=== PATIENT | female | born 1990 | race Caucasian/White ===

== ENCOUNTER 2016-10-10 03:18 | Emergency (ER) | payer OTHER, MEDICAID ==
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
[2016-10-10] MEDS ORDERED: FENTANYL CITRATE INJ/PF 100 MCG/2 ML AMPUL IV ONE (06:36)
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
[2016-10-10] MEDS ORDERED: ACETAMINOPHEN 325 MG TABLET PO ONE (07:04)
[2016-10-10] MEDS ORDERED: DIPH/PERTUSS(ACELL)/TETANUS VAC/PF 0.5 ML SYR (>=10YO) IM ONE (07:04)
[2016-10-10 07:46] LABS: ABSOLUTE BASOPHILS # (AUTO) 0.1 10^3/uL (0.0-0.2); ABSOLUTE EOSINOPHILS # (AUTO) 0.1 10^3/uL (0.0-0.6); ABSOLUTE LYMPHOCYTES (AUTO) 1.6 10^3/uL (0.5-4.7); ABSOLUTE MONOCYTES (AUTO) 0.8 10^3/uL (0.1-1.4); ABSOLUTE NEUT (AUTO) 14.2 10^3/uL (1.7-8.2); BASOPHILS % (AUTO) 0.3 % (0-2); EOSINOPHILS % (AUTO) 0.3 % (0-6); HEMATOCRIT 36.9 % (36.0-47.0); HEMOGLOBIN 12.9 g/dL (12.0-15.5); HGB HCT DIFFERENCE 1.8; LYMPHOCYTES % (AUTO) 9.6 % (13-45); MEAN CORPUSCULAR HEMOGLOBIN 31.4 pg (27.0-33.4); MEAN CORPUSCULAR HGB CONC 35.1 g/dL (32.0-36.0); MEAN CORPUSCULAR VOLUME 89 fl (80-97); MONOCYTES % (AUTO) 4.8 % (3-13); RED BLOOD COUNT 4.13 10^6/uL (3.72-5.28); RED CELL DISTRIBUTION WIDTH 13.5 % (11.5-14.0); WHITE BLOOD COUNT 16.7 10^3/uL (4.0-10.5)
[2016-10-10 08:52] VITALS: BP 121/70
[2016-10-10 09:05] LABS: ALANINE AMINOTRANSFERASE 88 U/L (9-52); ALBUMIN 4.6 g/dL (3.5-5.0); ALKALINE PHOSPHATASE 91 U/L (38-126); ANION GAP 15 (5-19); ASPARTATE AMINO TRANSFERASE 75 U/L (14-36); BLOOD UREA NITROGEN 15 mg/dL (7-20); CALCIUM 10.1 mg/dL (8.4-10.2); CARBON DIOXIDE 25 mmol/L (22-30); CHLORIDE 104 mmol/L (98-107); CREATININE RESULT 0.76 mg/dL (0.52-1.25); GLUCOSE 96 mg/dL (75-110); POTASSIUM 4.1 mmol/L (3.6-5.0); SODIUM 143.5 mmol/L (137-145); TOTAL PROTEIN 8.2 g/dL (6.3-8.2)
[2016-10-10] MEDS ORDERED: LORAZEPAM INJ 2 MG/1 ML VIAL IV ONE (10:15)
[2016-10-10] MEDS ORDERED: NICOTINE 7 MG/24 HR PATCH.TD24 TD ONE (10:26)
== END 2016-10-10 10:51 | disposition short-term general hospital (02) ==
LOC: ER 03:18
DX: S12.591A Other nondisplaced fracture of sixth cervical vertebra, initial encounter for closed fracture (principal); S01.21XA Laceration without foreign body of nose, initial encounter; S80.01XA Contusion of right knee, initial encounter; V47.5XXA Car driver injured in collision with fixed or stationary object in traffic accident, initial encounter; M54.2 Cervicalgia; M25.561 Pain in right knee; M54.6 Pain in thoracic spine; M54.5 Low back pain; I10 Essential (primary) hypertension; F17.200 Nicotine dependence, unspecified, uncomplicated
CPT/HCPCS: 99285; 90471; 96374; 36415; 85025; 80053; 71020; 72170; 73560; 70450; 70486; 72125; 90715; L0120; J2060; J3490

== ENCOUNTER → 2017-04-06 | Outpatient (CLI) | payer MEDICAID ==
--- NOTE | 2017-04-06 15:32 | RADIOLOGY REPORT (SQ) ---
EXAM DESCRIPTION: CERV SP 4 OR 5 VIEWS COMPLETED DATE/TIME: 04/06/2017 3:19 pm REASON FOR STUDY: UNSP DISP FX OF SIXTH CERVICAL VERTEBRA, INIT FOR CLOS FX S12.500A UNSP DISP FX O F SIXTH CERVICAL VERTEBRA, INIT FOR C COMPARISON: CT dated 10/10/2016. NUMBER OF VIEWS: Five views. TECHNIQUE: AP, lateral, obliques and odontoid radiographic images acquired of the cervical spine. LIMITATIONS: None. FINDINGS: MINERALIZATION: Normal. ALIGNMENT: Anatomic. VERTEBRAE: Vertebral bodies of normal height. DISCS: No significant osteophytes or sclerosis. Disc height maintained. FORAMINA: No osteophytes or foraminal narrowing. LATERAL AND POSTERIOR ELEMENTS: Facets, lateral masses and spinous processes without significant find ings. HARDWARE: None in the spine. SOFT TISSUES: No masses or calcifications. Lung apices clear. OTHER: No other significant finding. IMPRESSION: NO SIGNIFICANT RADIOGRAPHIC FINDING IN THE CERVICAL SPINE. THE FRACTURE IDENTIFIED ON P REVIOUS CT IS NOT VISIBLE ON PLAIN X-RAY. TECHNICAL DOCUMENTATION: JOB ID: [id number] [employer]- All Rights Reserved
== END ==
LOC: RAD 14:54
PROVIDERS: ATTEND Family Medicine
DX: S12.500A Unspecified displaced fracture of sixth cervical vertebra, initial encounter for closed fracture (principal); X58.XXXA Exposure to other specified factors, initial encounter
CPT/HCPCS: 72050

== ENCOUNTER 2017-04-29 06:58 | Emergency (ER) | payer MEDICAID ==
--- NOTE | 2017-04-29 08:20 | ER Document Report ---
ED Extremity Problem, Lower - General Chief Complaint: Leg Pain Stated Complaint: LOWER EXTREMITY PAIN Time Seen by Provider: 04/29/17 08:17 Mode of Arrival: Ambulatory Information source: Patient Notes: Patient is a 27-year-old female who presents to the ER today for swelling to bilateral feet yesterday that has never happened before. She admits to pain with the swelling, states that it's gotten better with her elevating her feet on pillows last night. She also complains of bilateral lower back pain radiating down her legs occasionally. Her pain management doctor has her on gabapentin for this, she says it doesn't help. She denies loss of bladder or bowel function. TRAVEL OUTSIDE OF THE [place] IN LAST 30 DAYS: No - Related Data Allergies/Adverse Reactions: No Known Allergies Allergy (Verified 07/05/16 07:16) Past Medical History - General Information source: Patient - Social History Smoking Status: Unknown if Ever Smoked Family History: Arthritis, DM, Hyperlipidemia, Hypertension, Malignancy - skin, Other - Mother: blood clots in legs Patient has suicidal ideation: No Patient has homicidal ideation: No - Past Medical History Cardiac Medical History: Reports: Hx Hypertension Pulmonary Medical History: Reports: Hx Bronchitis - twice in last 2 yrs Neurological Medical History: Reports: Hx Migraine Renal/ Medical History: Reports: Hx Ovarian Cysts. Denies: Hx Peritoneal Dialysis GI Medical History: Reports: Hx Irritable Bowel - constipation Musculoskeltal Medical History: Denies Hx Arthritis, Reports Hx Musculoskeletal Trauma Psychiatric Medical History: Reports: Hx Anxiety, Hx Attention Deficit Hyperactivity Disorder, Hx Depression Traumatic Medical History: Reports: Hx Fractures Past Surgical History: Reports: Hx Abdominal Surgery - LAPROSCOPY FOR ENDOMETROSIS, Hx Adenoidectomy, Hx Breast Surgery - augmentation, Hx Gynecologic Surgery - LAPROSCOPY FOR ENDOMETROSIS, Hx Orthopedic Surgery - pack 's cyst, Hx Tonsillectomy. Denies: Hx Pacemaker - Immunizations Immunizations up to date: Yes Hx Diphtheria, Pertussis, Tetanus Vaccination: Yes Review of Systems - Review of Systems Constitutional: No symptoms reported EENT: No symptoms reported Cardiovascular: No symptoms reported Respiratory: No symptoms reported Gastrointestinal: No symptoms reported Genitourinary: No symptoms reported Female Genitourinary: No symptoms reported Musculoskeletal: See HPI Skin: See HPI Hematologic/Lymphatic: No symptoms reported Neurological/Psychological: No symptoms reported Physical Exam - Vital signs Vitals: Temp Pulse Resp BP Pulse Ox 97.5 F 78 16 120/73 98 04/29/17 07:14 04/29/17 07:14 04/29/17 07:14 04/29/17 07:14 04/29/17 07:14 - Notes Notes: PHYSICAL EXAMINATION: GENERAL: Well-appearing and in no acute distress. HEAD: Atraumatic, normocephalic. EYES: Pupils equal round and reactive to light, extraocular movements intact, sclera anicteric, conjunctiva are normal. NECK: Normal range of motion, supple without lymphadenopathy LUNGS: CTAB and equal. No wheezes rales or rhonchi. HEART: Regular rate and rhythm without murmurs ABDOMEN: Soft, no tenderness. No guarding, no rebound BACK: Bilateral SI joint tenderness, no vertebral tenderness, normal ROM but with pain to hips on flexion and extension GI/: no CVA tenderness EXTREMITIES: Normal range of motion, no pitting edema. No cyanosis. NEUROLOGICAL: Cranial nerves grossly intact. Normal sensory/motor exams. PSYCH: Normal mood, normal affect. SKIN: Warm, Dry, normal turgor, no rashes or lesions noted Course - Re-evaluation Re-evalutation: 04/29/17 13:45 Lab work is unremarkable today including a normal BNP and kidney function, patient does not actually have any pitting edema here at the emergency department, I will treat her for sciatica with muscle relaxer and anti- inflammatory medication. - Vital Signs Vital signs: Temp Pulse Resp BP Pulse Ox 97.6 F 73 16 106/66 99 04/29/17 09:44 04/29/17 09:44 04/29/17 07:14 04/29/17 09:44 04/29/17 09:44 - Laboratory Result Diagrams: 04/29/17 08:32 04/29/17 08:32 Laboratory results interpreted by me: 04/29/17 04/29/17 04/29/17 08:32 08:32 08:32 RBC 3.71 L Hct 35.5 L MCH 33.7 H AST 50 H ALT 76 H NT-Pro-B Natriuret Pep 133 H Total Protein 6.2 L Discharge - Discharge Clinical Impression: Bilateral swelling of feet Sciatica Qualifiers: Laterality: bilateral Qualified Code(s): M54.31 - Sciatica, right side Condition: Stable Disposition: HOME, SELF-CARE Instructions: Sciatica ([facility]) Additional Instructions: Return immediately for any new or worsening symptoms. Follow up with primary care provider, call tomorrow to make followup appointment. Prescriptions: Cyclobenzaprine HCl [Flexeril 10 mg Tablet] 10 mg PO TIDP PRN #15 tab PRN Reason: Ibuprofen [Motrin 800 mg Tablet] 800 mg PO Q8H PRN #30 tab PRN Reason: Prednisone 40 mg PO DAILY #12 tablet
[2017-04-29] MEDS ORDERED: IBUPROFEN 800 MG TABLET PO ONE (08:28)
[2017-04-29] MEDS ORDERED: CYCLOBENZAPRINE HCL 10 MG TABLET PO ONE (08:28)
[2017-04-29] MEDS ORDERED: PREDNISONE 20 MG TABLET PO ONE (08:28)
[2017-04-29 08:43] LABS: ABSOLUTE EOSINOPHILS # (AUTO) 0.2 10^3/uL (0.0-0.6); ABSOLUTE LYMPHOCYTES (AUTO) 2.3 10^3/uL (0.5-4.7); ABSOLUTE MONOCYTES (AUTO) 0.5 10^3/uL (0.1-1.4); ABSOLUTE NEUT (AUTO) 3.6 10^3/uL (1.7-8.2); BASOPHILS % (AUTO) 0.4 % (0-2); EOSINOPHILS % (AUTO) 3.7 % (0-6); HEMATOCRIT 35.5 % (36.0-47.0); HEMOGLOBIN 12.5 g/dL (12.0-15.5); LYMPHOCYTES % (AUTO) 34.6 % (13-45); MEAN CORPUSCULAR HEMOGLOBIN 33.7 pg (27.0-33.4); MEAN CORPUSCULAR HGB CONC 35.1 g/dL (32.0-36.0); MEAN CORPUSCULAR VOLUME 96 fl (80-97); RED BLOOD COUNT 3.71 10^6/uL (3.72-5.28); RED CELL DISTRIBUTION WIDTH 13.2 % (11.5-14.0); SEGMENTED NEUTROPHILS % (AUTO) 54.3 % (42-78); WHITE BLOOD COUNT 6.6 10^3/uL (4.0-10.5)
[2017-04-29 09:10] LABS: AMORPHOUS SEDIMENT,URINE TRACE /HPF; APPEARANCE,URINE CLOUDY; BILIRUBIN,URINE NEGATIVE (NEGATIVE); GLUCOSE, URINE NEGATIVE (NEGATIVE); KETONES,URINE NEGATIVE (NEGATIVE); LEUKOCYTE ESTERASE,URINE NEGATIVE (NEGATIVE); NITRITE,URINE NEGATIVE (NEGATIVE); PROTEIN,URINE NEGATIVE (NEGATIVE); URINE SPECIFIC GRAVITY 1.012; UROBILINOGEN,URINE NEGATIVE mg/dL (<2.0)
[2017-04-29 09:17] LABS: ALANINE AMINOTRANSFERASE 76 U/L (9-52); ALBUMIN 3.6 g/dL (3.5-5.0); ALKALINE PHOSPHATASE 49 U/L (38-126); ANION GAP 8 (5-19); ASPARTATE AMINO TRANSFERASE 50 U/L (14-36); BILIRUBIN,DIRECT 0.3 mg/dL (0.0-0.4); BILIRUBIN,TOTAL 0.3 mg/dL (0.2-1.3); BLOOD UREA NITROGEN 11 mg/dL (7-20); CALCIUM 9.5 mg/dL (8.4-10.2); CARBON DIOXIDE 29 mmol/L (22-30); CHLORIDE 102 mmol/L (98-107); CREATININE RESULT 0.65 mg/dL (0.52-1.25); GLUCOSE 103 mg/dL (75-110); POTASSIUM 3.9 mmol/L (3.6-5.0); SODIUM 138.9 mmol/L (137-145); TOTAL PROTEIN 6.2 g/dL (6.3-8.2)
[2017-04-29 09:58] VITALS: BP 106/66
== END 2017-04-29 09:58 | disposition home or self-care (01) ==
LOC: ER 06:58
DX: M54.31 Sciatica, right side (principal); M79.89 Other specified soft tissue disorders; M54.5 Low back pain; M79.672 Pain in left foot; M79.671 Pain in right foot
CPT/HCPCS: 99283; 36415; 84703; 85025; 80053; 81001; 83880; J3490 ×2; J7512

== ENCOUNTER → 2017-09-08 | Outpatient (CLI) | payer MEDICAID ==
--- NOTE | 2017-09-08 15:47 | RADIOLOGY REPORT (SQ) ---
EXAM DESCRIPTION: HAND LEFT 2 VIEWS COMPLETED DATE/TIME: 09/08/2017 2:53 pm REASON FOR STUDY: INJURY OF LEFT HAND (S69.92XA) S69.92XA UNSP INJURY OF LEFT WRIST, HAND AND FINGE R(S), INIT COMPARISON: None. EXAM PARAMETERS: NUMBER OF VIEWS: Three views. TECHNIQUE: AP, lateral and oblique radiographic images acquired of the left hand. LIMITATIONS: None. FINDINGS: MINERALIZATION: Normal. BONES: No acute fracture or dislocation. No worrisome bone lesions. JOINTS: No effusions. SOFT TISSUES: No soft tissue swelling. No foreign body. OTHER: No other significant finding. IMPRESSION: NEGATIVE STUDY OF THE LEFT HAND. NO RADIOGRAPHIC EVIDENCE OF ACUTE INJURY. TECHNICAL DOCUMENTATION: JOB ID: [id number] [employer]- All Rights Reserved
== END ==
LOC: RAD 14:10
DX: S69.92XA Unspecified injury of left wrist, hand and finger(s), initial encounter (principal); X58.XXXA Exposure to other specified factors, initial encounter; Y93.9 Activity, unspecified; Y92.9 Unspecified place or not applicable; Y99.9 Unspecified external cause status

== ENCOUNTER → 2017-09-16 | Outpatient (CLI) | payer MEDICAID ==
--- NOTE | 2017-09-16 17:23 | RADIOLOGY REPORT (SQ) ---
EXAM DESCRIPTION: L SPINE 2 VIEWS COMPLETED DATE/TIME: 09/16/2017 5:01 pm REASON FOR STUDY: M54.5 LOW BACK PAIN M54.5 LOW BACK PAIN COMPARISON: None. NUMBER OF VIEWS: Two views. TECHNIQUE: AP and lateral radiographic images acquired of the lumbar spine. LIMITATIONS: None. FINDINGS: MINERALIZATION: Normal. SEGMENTATION: Normal. No transitional anatomy. ALIGNMENT: Normal. VERTEBRAE: Maintained height. No fracture or worrisome bone lesion. DISCS: Preserved height. No significant osteophytes or end plate irregularity. POSTERIOR ELEMENTS: Pedicles and facets are intact. No pars defect or posterior arch defects. HARDWARE: None in the spine. PARASPINAL SOFT TISSUES: Normal. PELVIS: Intact as visualized. No fractures or worrisome bone lesions. SI joints intact. OTHER: No other significant finding. IMPRESSION: NORMAL 2 VIEW LUMBAR SPINE. TECHNICAL DOCUMENTATION: JOB ID: [id number] [employer]- All Rights Reserved
== END ==
LOC: RAD 16:24
PROVIDERS: ATTEND Physician Assistant
DX: M54.5 Low back pain (principal)
CPT/HCPCS: 72100

== ENCOUNTER 2017-11-10 16:33 | Emergency (ER) | payer MEDICAID ==
[2017-11-10] MEDS ORDERED: IBUPROFEN 600 MG TABLET PO ONE (17:13)
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
--- NOTE | 2017-11-10 17:52 | RADIOLOGY REPORT (SQ) ---
EXAM DESCRIPTION: WRIST LEFT 3 VIEWS; HAND LEFT 3 VIEWS COMPLETED DATE/TIME: 11/10/2017 5:37 pm REASON FOR STUDY: pain injury wednesday COMPARISON: 09/08/2017 NUMBER OF VIEWS: Six views. TECHNIQUE: AP, lateral, and oblique radiographic images acquired of the left wrist with AP, lateral oblique views left hand. LIMITATIONS: None. FINDINGS: MINERALIZATION: Normal. BONES: No acute fracture or dislocation. No worrisome bone lesions. Normal alignment. SOFT TISSUES: No soft tissue swelling. No foreign body. OTHER: No other significant finding. IMPRESSION: No significant abnormalities involving the left hand or wrist. TECHNICAL DOCUMENTATION: JOB ID: [id number] [employer]- All Rights Reserved Reading location - IP/workstation name: [email or web address]
--- NOTE | 2017-11-10 17:52 | RADIOLOGY REPORT (SQ) ---
EXAM DESCRIPTION: WRIST LEFT 3 VIEWS; HAND LEFT 3 VIEWS COMPLETED DATE/TIME: 11/10/2017 5:37 pm REASON FOR STUDY: pain injury wednesday COMPARISON: 09/08/2017 NUMBER OF VIEWS: Six views. TECHNIQUE: AP, lateral, and oblique radiographic images acquired of the left wrist with AP, lateral oblique views left hand. LIMITATIONS: None. FINDINGS: MINERALIZATION: Normal. BONES: No acute fracture or dislocation. No worrisome bone lesions. Normal alignment. SOFT TISSUES: No soft tissue swelling. No foreign body. OTHER: No other significant finding. IMPRESSION: No significant abnormalities involving the left hand or wrist. TECHNICAL DOCUMENTATION: JOB ID: [id number] [employer]- All Rights Reserved Reading location - IP/workstation name: [email or web address]
[2017-11-10 19:48] VITALS: BP 124/75
== END 2017-11-10 19:35 | disposition home or self-care (01) ==
LOC: ER 16:33
DX: M79.642 Pain in left hand (principal); M25.532 Pain in left wrist; Y04.2XXA Assault by strike against or bumped into by another person, initial encounter; Y92.009 Unspecified place in unspecified non-institutional (private) residence as the place of occurrence of the external cause
CPT/HCPCS: 99406; 99283; 73130; 73110; J3490

== ENCOUNTER 2017-11-14 03:42 | Emergency (ER) | payer MEDICAID ==
--- NOTE | 2017-11-14 04:11 | ER Document Report ---
ED General - General Chief Complaint: Psych Problem Stated Complaint: PSYCH PROBLEM Time Seen by Provider: 11/14/17 03:52 Mode of Arrival: Medic Information source: Patient, Emergency Med Personnel Notes: 27-year-old female presents under IVC hold due to pipe bipolar disorder not taking her medications as prescribed, it is noted the patient has been refusing to leave her room has been making suicidal statements and has had poor hygiene. Patient notes she was homeless last week is now with her parents. Patient herself denies any complaints TRAVEL OUTSIDE OF THE [place] IN LAST 30 DAYS: No COUNTRY TRAVELED TO/FROM: [facility] Onset: Just prior to arrival Onset/Duration: Sudden Quality of pain: No pain Severity: Mild Pain Level: Denies Associated symptoms: Other Exacerbated by: Denies Relieved by: Denies Similar symptoms previously: Yes Recently seen / treated by doctor: Yes - Related Data Allergies/Adverse Reactions: No Known Allergies Allergy (Verified 11/10/17 16:34) Past Medical History - Social History Smoking Status: Never Smoker Cigarette use (# per day): No Chew tobacco use (# tins/day): No Smoking Education Provided: No Family History: Arthritis, CAD, COPD, CVA, DM, Hyperlipidemia, Hypertension, Malignancy - skin, Other - Mother: blood clots in legs. denies: Thyroid Disfunction - Past Medical History Cardiac Medical History: Reports: Hx Hypertension Pulmonary Medical History: Reports: Hx Bronchitis - twice in last 2 yrs Neurological Medical History: Reports: Hx Migraine Renal/ Medical History: Reports: Hx Ovarian Cysts. Denies: Hx Peritoneal Dialysis GI Medical History: Reports: Hx Irritable Bowel - constipation Musculoskeltal Medical History: Denies Hx Arthritis, Reports Hx Musculoskeletal Deformity, Reports Hx Musculoskeletal Trauma Psychiatric Medical History: Reports: Hx Anxiety, Hx Attention Deficit Hyperactivity Disorder, Hx Bipolar Disorder, Hx Depression Traumatic Medical History: Reports: Hx Fractures - right hand Past Surgical History: Reports: Hx Abdominal Surgery - LAPROSCOPY FOR ENDOMETROSIS, Hx Adenoidectomy, Hx Breast Surgery - augmentation, Hx Gynecologic Surgery - LAPROSCOPY FOR ENDOMETROSIS, Hx Orthopedic Surgery - pack 's cyst, Hx Tonsillectomy. Denies: Hx Pacemaker - Immunizations Immunizations up to date: Yes Hx Diphtheria, Pertussis, Tetanus Vaccination: Yes Review of Systems - Review of Systems Notes: REVIEW OF SYSTEMS: CONSTITUTIONAL : Denies fever, chills, or sweats. Denies recent illness. EENT: Denies eye, ear, throat, or mouth pain or symptoms. Denies nasal or sinus congestion or discharge. Denies throat, tongue, or mouth swelling or difficulty swallowing. CARDIOVASCULAR: Denies chest pain. Denies palpitations or racing or irregular heart beat. Denies ankle edema. RESPIRATORY: Denies cough, cold, or chest congestion. Denies shortness of breath, difficulty breathing, or wheezing. GASTROINTESTINAL: Denies abdominal pain or distention. Denies nausea, vomiting , or diarrhea. Denies blood in vomitus, stools, or per rectum. Denies black, tarry stools. Denies constipation. GENITOURINARY: Denies difficulty urinating, painful urination, burning, frequency, blood in urine, or discharge. FEMALE GENITOURINARY: Denies vaginal bleeding, heavy or abnormal periods, irregular periods. Denies vaginal discharge or odor. MUSCULOSKELETAL: Denies back or neck pain or stiffness. Denies joint pain or swelling. SKIN: Denies rash, lesions or sores. HEMATOLOGIC : Denies easy bruising or bleeding. LYMPHATIC: Denies swollen, enlarged glands. NEUROLOGICAL: Denies confusion or altered mental status. Denies passing out or loss of consciousness. Denies dizziness or lightheadedness. Denies headache. Denies weakness or paralysis or loss of use of either side. Denies problems with gait or speech. Denies sensory loss, numbness, or tingling. Denies seizures. PSYCHIATRIC: Denies anxiety or stress. Denies depression, suicidal ideation, or homicidal ideation. However IVC paperwork notes otherwise ALL OTHER SYSTEMS REVIEWED AND NEGATIVE. PHYSICAL EXAMINATION: GENERAL: Well-appearing, well-nourished and in no acute distress. HEAD: Atraumatic, normocephalic. EYES: Pupils equal round and reactive to light, extraocular movements intact, conjunctiva are normal. ENT: Nares patent, oropharynx clear without exudates. Moist mucous membranes. NECK: Normal range of motion, supple without lymphadenopathy LUNGS: Breath sounds clear to auscultation bilaterally and equal. No wheezes rales or rhonchi. HEART: Regular rate and rhythm without murmurs ABDOMEN: Soft, nontender, nondistended abdomen. No guarding, no rebound. No masses appreciated. Female : deferred Musculoskeletal: Brace noted left forearm NEUROLOGICAL: Cranial nerves grossly intact. Normal speech, normal gait. Normal sensory, motor exams PSYCH: Normal mood, normal affect. SKIN: Ecchymosis of the left eyelid Dictation was performed using [employer] voice recognition software Course - Re-evaluation Re-evalutation: 11/14/17 04:10 Patient will be held involuntarily, lab work pending otherwise she is resting comfortably is stable mental health will evaluate her Discharge - Discharge Clinical Impression: Noncompliance with medication regimen Bipolar disorder Qualifiers: Active/Remission status: currently active Current bipolar episode type: depressed Current episode severity: mild Qualified Code(s): F31.31 - Bipolar disorder, current episode depressed, mild Condition: Stable Disposition: PSYCH HOSP/UNIT
[2017-11-14 04:38] LABS: ABSOLUTE EOSINOPHILS # (AUTO) 0.1 10^3/uL (0.0-0.6); ABSOLUTE LYMPHOCYTES (AUTO) 2.1 10^3/uL (0.5-4.7); ABSOLUTE MONOCYTES (AUTO) 0.6 10^3/uL (0.1-1.4); ABSOLUTE NEUT (AUTO) 5.5 10^3/uL (1.7-8.2); BASOPHILS % (AUTO) 0.4 % (0-2); HEMATOCRIT 38.6 % (36.0-47.0); HEMOGLOBIN 13.4 g/dL (12.0-15.5); LYMPHOCYTES % (AUTO) 25.4 % (13-45); MEAN CORPUSCULAR HEMOGLOBIN 32.7 pg (27.0-33.4); MEAN CORPUSCULAR HGB CONC 34.7 g/dL (32.0-36.0); MEAN CORPUSCULAR VOLUME 94 fl (80-97); MONOCYTES % (AUTO) 7.5 % (3-13); PLATELET COUNT 314 10^3/uL (150-450); RED BLOOD COUNT 4.09 10^6/uL (3.72-5.28); RED CELL DISTRIBUTION WIDTH 13.3 % (11.5-14.0); SEGMENTED NEUTROPHILS % (AUTO) 65.7 % (42-78); TOTAL CELLS COUNTED % (AUTO) 100 %; WHITE BLOOD COUNT 8.3 10^3/uL (4.0-10.5)
[2017-11-14 05:03] LABS: BILIRUBIN,URINE NEGATIVE (NEGATIVE); GLUCOSE, URINE NEGATIVE (NEGATIVE); KETONES,URINE TRACE mg/dL (NEGATIVE); LEUKOCYTE ESTERASE,URINE NEGATIVE (NEGATIVE); NITRITE,URINE NEGATIVE (NEGATIVE); PROTEIN,URINE NEGATIVE (NEGATIVE)
[2017-11-14 05:04] LABS: APPEARANCE,URINE SLIGHTLY HAZY; COLOR,URINE YELLOW
[2017-11-14 05:10] LABS: ALANINE AMINOTRANSFERASE 68 U/L (9-52); ALBUMIN 4.1 g/dL (3.5-5.0); ALKALINE PHOSPHATASE 51 U/L (38-126); ANION GAP 8 (5-19); ASPARTATE AMINO TRANSFERASE 29 U/L (14-36); BILIRUBIN,DIRECT 0.2 mg/dL (0.0-0.4); BILIRUBIN,TOTAL 0.2 mg/dL (0.2-1.3); BLOOD UREA NITROGEN 13 mg/dL (7-20); CALCIUM 9.6 mg/dL (8.4-10.2); CARBON DIOXIDE 27 mmol/L (22-30); CHLORIDE 109 mmol/L (98-107); GLUCOSE 88 mg/dL (75-110); POTASSIUM 4.2 mmol/L (3.6-5.0); TOTAL PROTEIN 7.1 g/dL (6.3-8.2)
[2017-11-14 05:20] LABS: ACETAMINOPHEN < 10 ug/mL (10-30); ALCOHOL < 10 mg/dL (NONE DETECTED); SALICYLATE < 1.0 mg/dL (2.0-20.0)
[2017-11-14 05:21] LABS: URINE BARBITURATES SCREEN NEGATIVE; URINE BENZODIAZEPINES SCREEN UNCONFIRMED POSITIVE; URINE COCAINE SCREEN NEGATIVE; URINE MARIJUANA (THC) SCREEN UNCONFIRMED POSITIVE; URINE METHADONE SCREEN NEGATIVE; URINE PHENCYCLIDINE SCREEN NEGATIVE
--- NOTE | 2017-11-14 10:51 | EKG REPORT ---
SEVERITY:- OTHERWISE NORMAL ECG - SINUS RHYTHM BORDERLINE RIGHT AXIS DEVIATION : Confirmed by: Juancarlos Miller 14-Nov-2017 10:51:17
--- NOTE | 2017-11-14 13:22 | PSYCHOLOGICAL NOTE ---
Psych Note - Psych Note Psych Note: Reason for consult: Patient under IVC, complaint by parents of patient not taking care of basic needs. Contact permissions: None given Patient is a 27-year-old female. Patient reports she was not aware that her parents were going to have her sent to a hospital. Patient reports her parents were upset with her because she left the home to go to a friend's house. Patient reports she has a 5-year-old son that her parents primarily take care of , and when she leaves the home the parents are upset because she does not take her son with her occasionally. Patient reports that she was trying to move but is financially dependent on her parents. Patient reports she put in applications for jobs and intends on getting a job so she could provide for her and her son. Patient reports she takes medications to manage her anxiety, depression, and bipolar disorder. Patient reports her parents manage her medications and does not allow her to hold them due to assuming she abuses her medications. Patient reports she takes care of her health and just leaves the home because she feels like her parents are too controlling. Patient reports that she needed a break because she was taking care of her father who had surgery recently. Patient reports she spends most of her time now with friends and it upsets her parents because she is not the primary md do resident urgent care of her 5 year old son. Patient reports she does not use drugs ( weed) around her son. Medication recommendations made by [facility] psychiatric provider Dr. Marilyn MD includes: Discontinue Adderall Begin BuSpar 10 mg twice daily Diagnosis: Per history 296.4 ( F31.74) Bipolar disorder in full remission V 62.9 (Z 60.9) unspecified problem related to social environment Impression/plan: Recommendation to rescind involuntary commitment due to patient not meeting criteria and [place] GS 122C.patient is psychiatrically clear for discharge. Based on patient's evaluation it was determined that the visit was related to family discord. Recommendation for patient to follow-up with primary care provider. Consulted with Dr. Pink regarding the management and care of patient.
--- NOTE | 2017-11-14 15:56 | ER Document Report ---
Doctor's Note Notes: 11/14/17 15:54 Rounds: Chart reviewed earlier and spoke with patient. Initial labs unremarkable except for positive for marijuana. Vital signs were all normal. Patient does not seem to be suicidal at this time. Patient appears to be medically stable for transfer or discharge. Boogie Briceno MD
[2017-11-14 16:23] VITALS: BP 111/54
== END 2017-11-14 16:08 | disposition home or self-care (01) ==
LOC: ER 03:42
DX: F31.31 Bipolar disorder, current episode depressed, mild (principal); Z91.14 Patient's other noncompliance with medication regimen
CPT/HCPCS: 36415; 80053; 80307; 81001; 81025; 85025; 93005; 93010; 99285

== ENCOUNTER 2018-07-05 13:52 | Emergency (ER) | payer MEDICAID, OTHER ==
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
[2018-07-05 15:21] LABS: ABSOLUTE EOSINOPHILS # (AUTO) 0.2 10^3/uL (0.0-0.6); ABSOLUTE LYMPHOCYTES (AUTO) 0.7 10^3/uL (0.5-4.7); ABSOLUTE MONOCYTES (AUTO) 0.4 10^3/uL (0.1-1.4); ABSOLUTE NEUT (AUTO) 13.4 10^3/uL (1.7-8.2); BASOPHILS % (AUTO) 0.2 % (0-2); EOSINOPHILS % (AUTO) 1.3 % (0-6); HEMATOCRIT 38.3 % (36.0-47.0); HEMOGLOBIN 13.2 g/dL (12.0-15.5); LYMPHOCYTES % (AUTO) 5.1 % (13-45); MEAN CORPUSCULAR HEMOGLOBIN 32.8 pg (27.0-33.4); MEAN CORPUSCULAR HGB CONC 34.6 g/dL (32.0-36.0); MEAN CORPUSCULAR VOLUME 95 fl (80-97); MONOCYTES % (AUTO) 2.5 % (3-13); PLATELET COUNT 180 10^3/uL (150-450); RED BLOOD COUNT 4.03 10^6/uL (3.72-5.28); RED CELL DISTRIBUTION WIDTH 13.9 % (11.5-14.0); SEGMENTED NEUTROPHILS % (AUTO) 90.9 % (42-78); TOTAL CELLS COUNTED % (AUTO) 100 %; WHITE BLOOD COUNT 14.8 10^3/uL (4.0-10.5)
[2018-07-05 15:28] LABS: ALANINE AMINOTRANSFERASE 17 U/L (9-52); ALBUMIN 4.4 g/dL (3.5-5.0); ALKALINE PHOSPHATASE 54 U/L (38-126); ANION GAP 14 (5-19); ASPARTATE AMINO TRANSFERASE 35 U/L (14-36); BILIRUBIN,DIRECT 0.3 mg/dL (0.0-0.4); BILIRUBIN,TOTAL 0.8 mg/dL (0.2-1.3); BLOOD UREA NITROGEN 11 mg/dL (7-20); CARBON DIOXIDE 25 mmol/L (22-30); CHLORIDE 103 mmol/L (98-107); GLUCOSE 184 mg/dL (75-110); POTASSIUM 3.7 mmol/L (3.6-5.0); SODIUM 142.4 mmol/L (137-145); TOTAL PROTEIN 7.4 g/dL (6.3-8.2)
[2018-07-05] MEDS ORDERED: NORMAL SALINE 1000 ML 1,000 ML IV ONE (15:28)
[2018-07-05 15:30] LABS: ACETAMINOPHEN < 10 ug/mL (10-30); SALICYLATE < 1.0 mg/dL (2.0-20.0)
[2018-07-05 17:29] LABS: APPEARANCE,URINE CLOUDY; BILIRUBIN,URINE NEGATIVE (NEGATIVE); COLOR,URINE YELLOW; GLUCOSE, URINE 50 mg/dL (NEGATIVE); KETONES,URINE NEGATIVE (NEGATIVE); LEUKOCYTE ESTERASE,URINE NEGATIVE (NEGATIVE); NITRITE,URINE NEGATIVE (NEGATIVE); PROTEIN,URINE 30 mg/dL (NEGATIVE); URINE SPECIFIC GRAVITY 1.013; UROBILINOGEN,URINE NEGATIVE mg/dL (<2.0)
[2018-07-05 17:40] LABS: URINE AMPHETAMINES SCREEN UNCONFIRMED POSITIVE; URINE BARBITURATES SCREEN NEGATIVE; URINE BENZODIAZEPINES SCREEN UNCONFIRMED POSITIVE; URINE COCAINE SCREEN UNCONFIRMED POSITIVE; URINE MARIJUANA (THC) SCREEN NEGATIVE; URINE METHADONE SCREEN NEGATIVE; URINE PHENCYCLIDINE SCREEN NEGATIVE
[2018-07-05 19:58] VITALS: BP 134/91
--- NOTE | 2018-07-06 19:22 | EKG REPORT ---
SEVERITY:- OTHERWISE NORMAL ECG - SINUS RHYTHM BORDERLINE RIGHT AXIS DEVIATION : Confirmed by: Jenni Hernandez MD 06-Jul-2018 19:21:33
== END 2018-07-05 20:29 | disposition home or self-care (01) ==
LOC: ER 13:52
DX: T40.1X1A Poisoning by heroin, accidental (unintentional), initial encounter (principal); Y92.512 Supermarket, store or market as the place of occurrence of the external cause; I10 Essential (primary) hypertension
CPT/HCPCS: 93005; 99284; 96360; 96361; 36415; 83735; 80307 ×3; 85025; 81025; 80053; 81001; 93010; J7030

== ENCOUNTER 2018-08-29 23:54 | Emergency (ER) | payer MEDICAID ==
[2018-08-30] MEDS ORDERED: IBUPROFEN 600 MG TABLET PO ONE (01:33)
[2018-08-30] MEDS ORDERED: PSEUDOEPHEDRINE HCL 30 MG TABLET PO ONE (01:33)
[2018-08-30] MEDS ORDERED: BENZONATATE 100 MG CAPSULE PO ONE (01:34)
--- NOTE | 2018-08-30 01:50 | ER Document Report ---
HPI - HPI Patient complains to provider of: Cough and congestion Time Seen by Provider: 08/30/18 01:01 Pain Level: 3 Context: Patient is a 28-year-old female presenting to the emergency department complaining of generalized cough and congestion since Wednesday. Patient is denying any fever, nausea, vomiting, diarrhea, shortness of breath or chest pain. Patient states when she does take [id number] Sudafed it does help her nasal congestion but once the Sudafed wears off the congestion comes back. Tonight patient is complaining of bilateral ear pain and sore throat. Past medical history: None Medications: None Allergies: None - CONSTITUTIONAL Constitutional: REPORTS: Chills - EENT EENT: REPORTS: Sore Throat, Ear Pain - bilateral - CARDIOVASCULAR Cardiovascular: REPORTS: Chest pain - RESPIRATORY Respiratory: REPORTS: Coughing - REPRODUCTIVE LMP: 08/27 Reproductive: DENIES: : Past Medical History - General Information source: Patient - Social History Smoking Status: Current Every Day Smoker Chew tobacco use (# tins/day): No Frequency of alcohol use: None Drug Abuse: None Family History: Arthritis, CAD, COPD, CVA, DM, Hyperlipidemia, Hypertension, Malignancy - skin, Other - Mother: blood clots in legs Patient has suicidal ideation: No Patient has homicidal ideation: No - Past Medical History Cardiac Medical History: Reports: Hx Hypertension Pulmonary Medical History: Reports: Hx Bronchitis - twice in last 2 yrs Neurological Medical History: Reports: Hx Migraine Renal/ Medical History: Reports: Hx Ovarian Cysts. Denies: Hx Peritoneal Dialysis GI Medical History: Reports: Hx Irritable Bowel - constipation Musculoskeletal Medical History: Denies Hx Arthritis, Reports Hx Musculoskeletal Deformity, Reports Hx Musculoskeletal Trauma Psychiatric Medical History: Reports: Hx Anxiety, Hx Attention Deficit Hyperactivity Disorder, Hx Bipolar Disorder, Hx Depression Traumatic Medical History: Reports: Hx Fractures - right hand Past Surgical History: Reports: Hx Abdominal Surgery - LAPROSCOPY FOR ENDOMETROSIS, Hx Adenoidectomy, Hx Breast Surgery - augmentation, Hx Gynecologic Surgery - LAPROSCOPY FOR ENDOMETROSIS, Hx Orthopedic Surgery - pack's cyst, Hx Tonsillectomy. Denies: Hx Pacemaker - Immunizations Immunizations up to date: Yes Hx Diphtheria, Pertussis, Tetanus Vaccination: Yes Vertical Provider Document - CONSTITUTIONAL Agree With Documented VS: Yes Notes: GENERAL: Alert, interacts well. No acute distress. HEAD: Normocephalic, atraumatic. No frontal or maxillary sinus tenderness upon palpation EYES: Pupils equal, round, and reactive to light. Extraocular movements intact. ENT: Oral mucosa moist, tongue midline. Nares patent, swollen turbinates bilaterally, TM's intact, nonerythematous, nonbulging bilaterally. Pharynx moderately erythematous tonsils +2 bilaterally, no palatal petechiae or exudate noted. NECK: Full range of motion. Supple. Trachea midline. No lymphadenopathy appreciated LUNGS: Clear to auscultation bilaterally, no wheezes, rales, or rhonchi. No respiratory distress. HEART: Regular rate and rhythm. No murmur ABDOMEN: Soft, non-tender. Non-distended. Bowel sounds present in all 4 quadra nts. EXTREMITIES: Moves all 4 extremities spontaneously. No edema, normal radial and dorsalis pedis pulses bilaterally. No cyanosis. BACK: no cervical, thoracic, lumbar midline tenderness. No saddle anesthesia, normal distal neurovascular exam. NEUROLOGICAL: Alert and oriented x3. Normal speech. cranial nerves II through XII grossly intact. PSYCH: Normal affect, normal mood. SKIN: Warm, dry, normal turgor. No rashes or lesions noted. - INFECTION CONTROL TRAVEL OUTSIDE OF THE [place] IN LAST 30 DAYS: No COUNTRY TRAVELED TO/FROM: [facility] Course - Re-evaluation Re-evalutation: 08/30/18 01:47 Patient remains afebrile in the emergency room, non-tachycardic, non-hyp otensive. She looks well-hydrated with moist mucous membranes. Lung sounds are clear and equal in all [place] with no respiratory distress. Discussed at home symptomatic relief for her cough and congestion. Discussed staying well- hydrated and continuing following up with her primary care provider. Patient stable for discharge. 08/30/18 02:26 Patient is requesting a refill of her albuterol inhaler at this time. I discussed with her that her lung sounds are clear and equal in all fern[place] and patient states that her primary care provider typically gives her albuterol when she gets into "coughing fits." Albuterol inhaler refilled. - Vital Signs Vital signs: Temp Pulse Resp BP Pulse Ox 97.3 F 98 16 134/80 H 98 08/29/18 23:59 08/29/18 23:59 08/29/18 23:59 08/29/18 23:59 08/29/18 23:59 Discharge - Discharge Clinical Impression: Sore throat Upper respiratory infection Qualifiers: URI type: unspecified viral URI Qualified Code(s): J06.9 - Acute upper respiratory infection, unspecified Condition: Stable Disposition: HOME, SELF-CARE Instructions: Upper Respiratory Illness ([facility]), Viral Syndrome ([facility]) Additional Instructions: As we discussed you have been seen and treated in the emergency department for an upper respiratory infection. Unfortunately those are caused by viruses and do not respond to antibiotics. Please stay well-hydrated and take medications as prescribed. Your primary care provider in the next 24-48 hours. Please return to the emergency room for any other concerning symptoms. Prescriptions: Benzonatate [Tessalon Perles 100 mg Capsule] 100 mg PO Q8HP PRN #40 capsule PRN Reason: Albuterol Sulfate [Proair HFA Inhalation Aerosol 8.5 gm MDI] 2 puff IH Q4H PRN #1 mdi PRN Reason: Cetirizine HCl [Zyrtec] 10 mg PO DAILY #30 capsule Mometasone Furoate [Nasonex] 1 spray NS Q12 #1 spray.pump Pseudoephedrine HCl [Sudafed 12 Hour] 120 mg PO BID #16 tablet.er Referrals: ARASELI RADER MD [Primary Care Provider] - Follow up as needed
[2018-08-30 02:23] VITALS: BP 128/73
[2018-08-30] MEDS ORDERED: ALBUTEROL SULFATE HFA (90 MCG/PUFF) 8 GM MDI (1 MDI/ER DISP) IH ONE ×2 (02:29→02:32)
[2018-08-30] MEDS ORDERED: ALBUTEROL SULFATE HFA (90 MCG/PUFF) 8 GM MDI (1 MDI/ER DISP) IH SCH (06:00)
== END 2018-08-30 02:36 | disposition home or self-care (01) ==
LOC: ER 23:54
DX: J02.9 Acute pharyngitis, unspecified (principal); F17.200 Nicotine dependence, unspecified, uncomplicated; I10 Essential (primary) hypertension; K58.1 Irritable bowel syndrome with constipation; F90.9 Attention-deficit hyperactivity disorder, unspecified type; F31.9 Bipolar disorder, unspecified; F41.9 Anxiety disorder, unspecified
CPT/HCPCS: 99283; 87070; 87880; J3490 ×3

== ENCOUNTER 2019-02-01 20:16 | Emergency (ER) | payer MEDICAID ==
[2019-02-01 22:13] LABS: ABSOLUTE EOSINOPHILS # (AUTO) 0.2 10^3/uL (0.0-0.6); ABSOLUTE LYMPHOCYTES (AUTO) 1.4 10^3/uL (0.5-4.7); ABSOLUTE MONOCYTES (AUTO) 0.5 10^3/uL (0.1-1.4); ABSOLUTE NEUT (AUTO) 7.5 10^3/uL (1.7-8.2); BASOPHILS % (AUTO) 0.4 % (0-2); EOSINOPHILS % (AUTO) 2.3 % (0-6); HEMATOCRIT 41.3 % (36.0-47.0); HEMOGLOBIN 14.5 g/dL (12.0-15.5); LYMPHOCYTES % (AUTO) 14.9 % (13-45); MEAN CORPUSCULAR HEMOGLOBIN 33.6 pg (27.0-33.4); MEAN CORPUSCULAR HGB CONC 35.1 g/dL (32.0-36.0); MEAN CORPUSCULAR VOLUME 96 fl (80-97); MONOCYTES % (AUTO) 5.6 % (3-13); PLATELET COUNT 260 10^3/uL (150-450); RED BLOOD COUNT 4.31 10^6/uL (3.72-5.28); SEGMENTED NEUTROPHILS % (AUTO) 76.8 % (42-78); TOTAL CELLS COUNTED % (AUTO) 100 %; WHITE BLOOD COUNT 9.7 10^3/uL (4.0-10.5)
[2019-02-01 22:27] LABS: ALANINE AMINOTRANSFERASE 15 U/L (9-52); ALKALINE PHOSPHATASE 47 U/L (38-126); ANION GAP 11 (5-19); ASPARTATE AMINO TRANSFERASE 17 U/L (14-36); BILIRUBIN,DIRECT 0.2 mg/dL (0.0-0.4); BILIRUBIN,TOTAL 0.6 mg/dL (0.2-1.3); BLOOD UREA NITROGEN 15 mg/dL (7-20); CALCIUM 9.7 mg/dL (8.4-10.2); CARBON DIOXIDE 26 mmol/L (22-30); CHLORIDE 105 mmol/L (98-107); LIPASE 104.9 U/L (23-300); TOTAL PROTEIN 8.2 g/dL (6.3-8.2)
[2019-02-01 22:33] LABS: GLUCOSE 66 mg/dL (75-110)
[2019-02-01] MEDS ORDERED: METOCLOPRAMIDE HCL 10 MG TABLET PO ONE (23:11)
[2019-02-01] MEDS ORDERED: OXYCODONE-ACETAMINOPHEN 5-325 MG TABLET PO ONE (23:11)
--- NOTE | 2019-02-01 23:13 | ER Document Report ---
ED Medical Screen (RME) - General Chief Complaint: Pelvic Pain Stated Complaint: STOMACH PAIN Time Seen by Provider: 02/01/19 23:09 Primary Care Provider: ARASELI RADER MD [Primary Care Provider] - Follow up as needed Notes: Patient is a 28-year-old female coming in today for sudden sharp stabbing pain in the suprapubic region. This started while she was at work prior to arrival. Also has experienced some left-sided flank pain which has made her slightly nauseous and also made her throw up one time. No fevers or shaking chills. No dysuria. Not having any vaginal discharge. I have treated and performed a rapid initial assessment of this patient. A comprehensive ED assessment and evaluation of the patient, analysis of test results and completion of medical decision making process will be conducted by additional ED providers. PHYSICAL EXAMINATION: GENERAL: Well-appearing, well-nourished and in no acute distress. A&Ox4. Answers questions appropriately. LUNGS: Breath sounds clear to auscultation bilaterally and equal. No wheezes rales or rhonchi. HEART: Regular rate and rhythm without murmurs, rubs, gallops. ABDOMEN: Limited abdominal exam based on location. Suprapubic tenderness. No CVA tenderness. No guarding or rebound. No peritoneal signs Extremities: No cyanosis, clubbing, or edema b/l. NEUROLOGICAL: Normal speech, normal gait. PSYCH: Normal mood, normal affect. TRAVEL OUTSIDE OF THE [place] IN LAST 30 DAYS: No COUNTRY TRAVELED TO/FROM: [facility] - Related Data Allergies/Adverse Reactions: No Known Allergies Allergy (Verified 11/10/17 16:34) Past Medical History - Social History Chew tobacco use (# tins/day): No Drug Abuse: None - Past Medical History Cardiac Medical History: Reports: Hx Hypertension Pulmonary Medical History: Reports: Hx Bronchitis - twice in last 2 yrs Neurological Medical History: Reports: Hx Migraine Renal/ Medical History: Reports: Hx Ovarian Cysts. Denies: Hx Peritoneal Dialysis GI Medical History: Reports: Hx Irritable Bowel - constipation Musculoskeltal Medical History: Denies Hx Arthritis, Reports Hx Musculoskeletal Deformity, Reports Hx Musculoskeletal Trauma Psychiatric Medical History: Reports: Hx Anxiety, Hx Attention Deficit Hyperac tivity Disorder, Hx Bipolar Disorder, Hx Depression Traumatic Medical History: Reports: Hx Fractures - right hand Past Surgical History: Reports: Hx Abdominal Surgery - LAPROSCOPY FOR ENDOMETROSIS, Hx Adenoidectomy, Hx Breast Surgery - augmentation, Hx Gynecologic Surgery - LAPROSCOPY FOR ENDOMETROSIS, Hx Orthopedic Surgery - pack's cyst, Hx Tonsillectomy. Denies: Hx Pacemaker - Immunizations Immunizations up to date: Yes Hx Diphtheria, Pertussis, Tetanus Vaccination: Yes Physical Exam - Vital signs Vitals: Temp Pulse Resp BP Pulse Ox 98.4 F 73 20 118/63 100 02/01/19 21:08 02/01/19 21:08 02/01/19 21:08 02/01/19 21:08 02/01/19 21:08 Course - Vital Signs Vital signs: Temp Pulse Resp BP Pulse Ox 98.4 F 73 20 118/63 100 02/01/19 21:08 02/01/19 21:08 02/01/19 21:08 02/01/19 21:08 02/01/19 21:08 - Laboratory Result Diagrams: 02/01/19 21:38 02/01/19 21:38 Laboratory results interpreted by me: 02/01/19 02/01/19 21:38 21:38 MCH 33.6 H Glucose 66 L Doctor's Discharge - Discharge Referrals: ARASELI RADER MD [Primary Care Provider] - Follow up as needed
[2019-02-01 23:44] LABS: APPEARANCE,URINE SLIGHTLY-CLOUDY; BILIRUBIN,URINE NEGATIVE (NEGATIVE); COLOR,URINE YELLOW; GLUCOSE, URINE NEGATIVE (NEGATIVE); KETONES,URINE NEGATIVE (NEGATIVE); LEUKOCYTE ESTERASE,URINE NEGATIVE (NEGATIVE); NITRITE,URINE NEGATIVE (NEGATIVE); PROTEIN,URINE NEGATIVE (NEGATIVE); URINE SPECIFIC GRAVITY 1.011; UROBILINOGEN,URINE NEGATIVE mg/dL (<2.0)
--- NOTE | 2019-02-02 01:40 | RADIOLOGY REPORT (SQ) ---
EXAM DESCRIPTION: CT ABDOMEN PELVIS WITHOUT IV CONTRAST COMPLETED DATE/TME: 02/02/2019 00:16 CLINICAL HISTORY: 28 years, Female, left flank and suprapubic pain and nausea. HCG NEGATIVE Comparison: None TECHNIQUE: Contiguous axial CT images of the abdomen and pelvis were obtained. Sagittal and coronal reformats were reviewed. This exam was performed according to our departmental dose-optimization program, which includes automated exposure control, adjustment of the mA and/or kV according to patient size and/or use of iterative reconstruction technique. FINDINGS: Lung bases: Clear. Liver:Unremarkable. No focal liver lesion. Gallbladder:Unremarkable. No gallstones. No gallbladder wall thickening or pericholecystic fluid. Spleen:Unremarkable Pancreas: Pancreas is unremarkable. Adrenal glands:Within normal limits. Kidneys/ureters:Within normal limits Stomach/small bowel/colon: Stomach is unremarkable. Small bowel is unremarkable. Colon is unremarkable. Appendix: No evidence of appendicitis. Peritoneum: Small amount of pelvic fluid. Vascular structures: within normal limits Lymph nodes: No abnormal lymph nodes. Bladder:Unremarkable. Pelvic organs: No acute abnormality. IUD is present within the uterus. Bones: No acute osseous abnormality. Soft tissues: Small fat containing umbilical hernia.. IMPRESSION: No acute intra-abdominal abnormality.
--- NOTE | 2019-02-02 02:14 | ER Document Report ---
ED General - General Chief Complaint: Pelvic Pain Stated Complaint: STOMACH PAIN Time Seen by Provider: 02/01/19 23:09 Primary Care Provider: ARASELI RADER MD [NO LOCAL MD] - Follow up as needed TRAVEL OUTSIDE OF THE [place] IN LAST 30 DAYS: No COUNTRY TRAVELED TO/FROM: [facility] - [facility] Notes: Patient is a 28-year-old female that presents to the emergency department for chief complaint of lower abdominal pain and near syncope. Patient reports this evening around 7:30 PM she was at work and had gone to the bathroom. Shortly after urinating she had a sudden onset of a sharp stabbing pain in her suprapubic region. The pain was nonradiating. It was worse with movement. She denies any relieving factors. She states that the pain became so severe that she felt lightheaded and sat down. She states she became very diaphoretic and threw up 2 times. She denied full syncopal event. She states after 30 to 40 minutes the pain eased off and has been a dull ache since. She states she has had similar pains in the past with endometriosis and has had to surgeries for her endometriosis. She has not had any issues with endometriosis since she was 18 years old though. Patient denies any vaginal discharge, vaginal bleeding, fevers, chest pain and shortness of breath. Past Medical History: Endometriosis, bipolar Past Surgical History: 2 laparoscopies with endometrial ablation Social History: Denies drugs alcohol and tobacco Family History: Reviewed and noncontributory for presenting illness Allergies: Reviewed, see documented allergy list. REVIEW OF SYSTEMS: CONSTITUTIONAL : No fever No chills diaphoresis No recent illness EENT: No vision changes No congestion No sore throat CARDIOVASCULAR: No chest pain No palpitations RESPIRATORY: No shortness of breath No cough No difficulty breathing GASTROINTESTINAL: abdominal pain nausea vomiting No diarrhea GENITOURINARY: No dysuria No hematuria No difficulty urinating MUSCULOSKELETAL: No back pain No leg pain No arm pain SKIN: No rashes No lesions LYMPHATIC: No swollen, enlarged glands. NEUROLOGICAL: No lightheadedness No headache No weakness No paresthesias PSYCHIATRIC: No anxiety No depression PHYSICAL EXAMINATION: Vital signs reviewed, nursing noted reviewed. GENERAL: Well-appearing, well-nourished and in no acute distress. HEAD: Atraumatic, normocephalic. EYES: Eyes appear normal, extraocular movements intact, sclera anicteric, conjunctiva are normal. ENT: nares patent, oropharynx clear without exudates. Moist mucous membranes. NECK: Normal range of motion, supple without lymphadenopathy LUNGS: Breath sounds clear to auscultation bilaterally and equal. No wheezes rales or rhonchi. HEART: Regular rate and rhythm without murmurs ABDOMEN: Soft, mild suprapubic tenderness, normoactive bowel sounds. No rebound, guarding, or rigidity. No masses appreciated. EXTREMITIES: Nontender, good range of motion, no pitting or edema. NEUROLOGICAL: No focal neurological deficits. Moves all extremities spont aneously Motor and sensory grossly intact on exam. PSYCH: Normal mood, normal affect. SKIN: Warm, Dry, normal turgor, no rashes or lesions noted on exposed skin - Related Data Allergies/Adverse Reactions: No Known Allergies Allergy (Verified 11/10/17 16:34) Past Medical History - Social History Smoking Status: Current Every Day Smoker Chew tobacco use (# tins/day): No Drug Abuse: None Family History: Arthritis, CAD, COPD, CVA, DM, Hyperlipidemia, Hypertension, Malignancy - skin, Other - Mother: blood clots in legs Patient has suicidal ideation: No Patient has homicidal ideation: No - Past Medical History Cardiac Medical History: Reports: Hx Hypertension Pulmonary Medical History: Reports: Hx Bronchitis - twice in last 2 yrs Neurological Medical History: Reports: Hx Migraine Renal/ Medical History: Reports: Hx Ovarian Cysts. Denies: Hx Peritoneal Dialysis GI Medical History: Reports: Hx Irritable Bowel - constipation Musculoskeletal Medical History: Denies Hx Arthritis, Reports Hx Musculoskeletal Deformity, Reports Hx Musculoskeletal Trauma Psychiatric Medical History: Reports: Hx Anxiety, Hx Attention Deficit Hyperactivity Disorder, Hx Bipolar Disorder, Hx Depression Traumatic Medical History: Reports: Hx Fractures - right hand Past Surgical History: Reports: Hx Abdominal Surgery - LAPROSCOPY FOR ENDOMETROSIS, Hx Adenoidectomy, Hx Breast Surgery - augmentation, Hx Gynecologic Surgery - LAPROSCOPY FOR ENDOMETROSIS, Hx Orthopedic Surgery - pack's cyst, Hx Tonsillectomy. Denies: Hx Pacemaker - Immunizations Immunizations up to date: Yes Hx Diphtheria, Pertussis, Tetanus Vaccination: Yes Physical Exam - Vital signs Vitals: Temp Pulse Resp BP Pulse Ox 98.4 F 73 20 118/63 100 02/01/19 21:08 02/01/19 21:08 02/01/19 21:08 02/01/19 21:08 02/01/19 21:08 Course - Re-evaluation Re-evalutation: 02/02/19 02:13 Vitals reviewed. Nursing notes reviewed. Patient is well-appearing and in no acute distress. She states her pain is a mild ache currently and is significa ntly better than earlier. Her lab work is unremarkable. She has no electrolyte derangements. CT scan shows no acute intra-abdominal process. Patient did not have a full syncopal episode and her lightheadedness, diaphoresis and vomiting was likely secondary to her pain. Her symptoms are possibly related to her endometriosis or lower abdominal adhesions. I encouraged her to follow with gynecology for close outpatient reevaluation. I counseled her on return precautions. She was encouraged to take Tylenol or ibuprofen at home as needed for pain. Patient is feeling much better and is stable for discharge. Laboratory 02/01/19 02/01/19 02/01/19 21:38 21:38 21:50 WBC 9.7 RBC 4.31 Hgb 14.5 Hct 41.3 MCV 96 MCH 33.6 H MCHC 35.1 RDW 13.0 Plt Count 260 Seg Neutrophils % 76.8 Lymphocytes % 14.9 Monocytes % 5.6 Eosinophils % 2.3 Basophils % 0.4 Absolute Neutrophils 7.5 Absolute Lymphocytes 1.4 Absolute Monocytes 0.5 Absolute Eosinophils 0.2 Absolute Basophils 0.0 Sodium 142.0 Potassium 4.0 Chloride 105 Carbon Dioxide 26 Anion Gap 11 BUN 15 Creatinine 0.76 Est GFR ( Amer) > 60 Est GFR (Non-Af Amer) > 60 Glucose 66 L Calcium 9.7 Total Bilirubin 0.6 Direct Bilirubin 0.2 Neonat Total Bilirubin Not Reportable Neonat Direct Bilirubin Not Reportable Neonat Indirect Bili Not Reportable AST 17 ALT 15 Alkaline Phosphatase 47 Total Protein 8.2 Albumin 5.0 Lipase 104.9 Urine Color YELLOW Urine Appearance SLIGHTLY-CLOUDY Urine pH 6.0 Ur Specific Naylor 1.011 Urine Protein NEGATIVE Urine Glucose (UA) NEGATIVE Urine Ketones NEGATIVE Urine Blood SMALL H Urine Nitrite NEGATIVE Urine Bilirubin NEGATIVE Urine Urobilinogen NEGATIVE Ur Leukocyte Esterase NEGATIVE Urine WBC (Auto) 2 Urine RBC (Auto) 1 Urine Bacteria (Auto) TRACE Squamous Epi Cells Auto 6 Urine Mucus (Auto) RARE Urine Ascorbic Acid NEGATIVE Urine HCG, Qual NEGATIVE Abdomen/Pelvis CT 02/02/19 00:16 IMPRESSION: No acute intra-abdominal abnormality. - Vital Signs Vital signs: Temp Pulse Resp BP Pulse Ox 98.4 F 73 20 118/63 100 02/01/19 21:08 02/01/19 21:08 02/01/19 21:08 02/01/19 21:08 02/01/19 21:08 - Laboratory Result Diagrams: 02/01/19 21:38 02/01/19 21:38 Laboratory results interpreted by me: 02/01/19 02/01/19 02/01/19 21:38 21:38 21:50 MCH 33.6 H Glucose 66 L Urine Blood SMALL H Discharge - Discharge Clinical Impression: Pelvic pain, Near syncope Condition: Stable Disposition: HOME, SELF-CARE Instructions: Pelvic Pain ([facility]) Additional Instructions: Please return to the emergency department if you have any worsening, or concern of your symptoms. Please return to the emergency department if you develop chest pain, difficulty breathing, severe abdominal pain, or ongoing vomiting. Please follow-up with your primary care physician in 2-3 days and any other recommended physicians. If prescribed, take all medications as directed. If you have any questions or concerns do not hesitate to return the emergency department for evaluation. Follow-up with your regional trainer in the next 2 to 3 days for reevaluation Take Tylenol and ibuprofen at home as needed for pain. Take as directed on the label. Forms: Parent Work Note Referrals: ARASELI RADER MD [NO LOCAL MD] - Follow up as needed [facility] [Provider Group] - Follow up as needed
[2019-02-02 02:26] VITALS: BP 111/70
== END 2019-02-02 02:26 | disposition home or self-care (01) ==
LOC: ER 20:16
DX: R10.2 Pelvic and perineal pain (principal); R55 Syncope and collapse; R61 Generalized hyperhidrosis; R11.2 Nausea with vomiting, unspecified; I10 Essential (primary) hypertension; F17.200 Nicotine dependence, unspecified, uncomplicated; Z87.42 Personal history of other diseases of the female genital tract; Z87.19 Personal history of other diseases of the digestive system
CPT/HCPCS: 99284; 36415; 83690; 85025; 81025; 80053; 81001; 74176; J3490

== ENCOUNTER 2019-07-10 06:07 | Emergency (ER) | payer MEDICAID ==
[2019-07-10] MEDS ORDERED: IBUPROFEN 800 MG TABLET PO ONE (06:44)
[2019-07-10] MEDS ORDERED: PSEUDOEPHEDRINE HCL 30 MG TABLET PO ONE (06:44)
[2019-07-10] MEDS ORDERED: IPRATROPIUM/ALBUTEROL 0.5-2.5 MG/3 ML AMPUL NEB ONE (06:44)
--- NOTE | 2019-07-10 06:45 | ER Document Report ---
HPI - HPI Patient complains to provider of: Cough Time Seen by Provider: 07/10/19 06:25 Onset: Last week Onset/Duration: Worse Quality of pain: Achy Pain Level: 3 Context: Patient presenting with congestion for the past week and cough that developed 2 days ago. Patient complains of feeling weak. Patient states when she coughs she will have chest and upper back pain. Patient does report having hot and cold chills. Patient does report recent sick contacts. Cough is occasionally productive. Associated Symptoms: Chest pain, Productive cough, Vomiting, Rhinnorhea. denies: Earache, Fever, Sore throat Exacerbated by: Denies Relieved by: Denies Similar symptoms previously: Yes Recently seen / treated by doctor: No - ROS ROS below otherwise negative: Yes Systems Reviewed and Negative: Yes All other systems reviewed and negative - CONSTITUTIONAL Constitutional: REPORTS: Chills - EENT EENT: REPORTS: Nasal Drainage-Clear, Congestion - CARDIOVASCULAR Cardiovascular: REPORTS: Chest pain - RESPIRATORY Respiratory: REPORTS: Coughing - GASTROINTESTINAL Gastrointestinal: REPORTS: Nausea, Patient vomiting. DENIES: Abdominal Pain, Diarrhea - REPRODUCTIVE LMP: 3 weeks ago Reproductive: DENIES: : - MUSCULOSKELETAL Musculoskeletal: REPORTS: Back Pain - DERM Skin Color: Normal Skin Problems: None Past Medical History - General Information source: Patient - Social History Smoking Status: Current Every Day Smoker Smoking Education Provided: Yes Frequency of alcohol use: None Drug Abuse: None Occupation: [employer] Lives with: Family Family History: Arthritis, CAD, COPD, CVA, DM, Hyperlipidemia, Hypertension, Malignancy - skin, Other - Mother: blood clots in legs Patient has suicidal ideation: No Patient has homicidal ideation: No Pulmonary Medical History: Reports: Hx Bronchitis - twice in last 2 yrs Neurological Medical History: Reports: Hx Migraine Renal/ Medical History: Reports: Hx Ovarian Cysts. Denies: Hx Peritoneal Dialysis GI Medical History: Reports: Hx Irritable Bowel - constipation Musculoskeletal Medical History: Denies Hx Arthritis, Reports Hx Musculoskeletal Deformity, Reports Hx Musculoskeletal Trauma Psychiatric Medical History: Reports: Hx Anxiety, Hx Attention Deficit Hyperactivity Disorder, Hx Bipolar Disorder, Hx Depression Traumatic Medical History: Reports: Hx Fractures - right hand Past Surgical History: Reports: Hx Abdominal Surgery - LAPROSCOPY FOR ENDOMETROSIS, Hx Adenoidectomy, Hx Breast Surgery - augmentation, Hx Gynecologic Surgery - LAPROSCOPY FOR ENDOMETROSIS, Hx Orthopedic Surgery - pack's cyst, Hx Tonsillectomy. Denies: Hx Pacemaker - Immunizations Immunizations up to date: Yes Hx Diphtheria, Pertussis, Tetanus Vaccination: Yes Vertical Provider Document - CONSTITUTIONAL Agree With Documented VS: Yes Exam Limitations: No Limitations General Appearance: WD/WN, No Apparent Distress - INFECTION CONTROL TRAVEL OUTSIDE OF THE [place] IN LAST 30 DAYS: No - HEENT HEENT: Atraumatic, Normocephalic. negative: Pharyngeal Exudate, Pharyngeal Tenderness, Pharyngeal Erythema, Tympanic Membrane Red, Tympanic Membrane Bulging Notes: clear rhinorrhea - NECK Neck: Normal Inspection, Supple. negative: Lymphadenopathy-Left, Lymphadenopathy-Right - RESPIRATORY Respiratory: No Respiratory Distress, Rhonchi - CARDIOVASCULAR Cardiovascular: Regular Rate, Regular Rhythm, No Murmur - BACK Back: Normal Inspection - MUSCULOSKELETAL/EXTREMETIES Musculoskeletal/Extremeties: MAEW, FROM - NEURO Level of Consciousness: Awake, Alert, Appropriate Motor/Sensory: No Motor Deficit - DERM Integumentary: Warm, Dry, No Rash Course - Re-evaluation Re-evalutation: 07/10/19 07:52 Respirations even unlabored, patient nontoxic in appearance. Chest x-ray reviewed, no concern for pneumonia. Discussed worsening signs or symptoms that patient should return immediately for. Patient verbalized understanding agrees with plan of care. - Vital Signs Vital signs: Temp Pulse Resp BP Pulse Ox 97.8 F 75 20 128/84 H 100 07/10/19 06:14 07/10/19 06:14 07/10/19 06:14 07/10/19 06:14 07/10/19 06:14 - Diagnostic Test Radiology reviewed: Image reviewed, Reports reviewed Discharge - Discharge Clinical Impression: Nasal congestion Upper respiratory infection Qualifiers: URI type: unspecified URI Qualified Code(s): J06.9 - Acute upper respiratory infection, unspecified Condition: Stable Disposition: HOME, SELF-CARE Instructions: Upper Respiratory Illness ([facility]), Inhaled Bronchodilators ([facility]) Additional Instructions: Return immediately for any new or worsening symptoms Followup with your primary care provider, call tomorrow to make a followup appointment Prescriptions: Guaifenesin/Pseudoephedrne HCl [Mucinex D ER 1,200-120 mg Tab] 1 each PO Q12 PRN #12 tab.er.12h PRN Reason: Naproxen [Naprosyn 250 Nmg Tablet] 1 tab PO BID #14 tablet Forms: Smoking Cessation Education, Return to Work Referrals: ARASELI RADER MD [Primary Care Provider] - Follow up as needed
--- NOTE | 2019-07-10 07:48 | RADIOLOGY REPORT (SQ) ---
EXAM DESCRIPTION: XR CHEST 2 VIEWS COMPLETED DATE/TME: 07/10/2019 06:44 CLINICAL HISTORY: cough COMPARISON: 10/10/2016 FINDINGS: Frontal and lateral views of the chest. Cardiomediastinal silhouette: Normal size and contour. Lungs: No consolidation, pneumothorax, or pleural effusion. Bones: No acute osseous abnormality. Upper abdomen: No abnormality identified. IMPRESSION: 1. No acute pulmonary process identified.
[2019-07-10] MEDS ORDERED: ALBUTEROL SULFATE HFA (90 MCG/PUFF) 8 GM MDI (1 MDI/ER DISP) IH ONE (07:52)
[2019-07-10 08:33] VITALS: BP 113/75
== END 2019-07-10 08:52 | disposition home or self-care (01) ==
LOC: ER 06:07
DX: J06.9 Acute upper respiratory infection, unspecified (principal); R09.81 Nasal congestion; R53.1 Weakness; R07.9 Chest pain, unspecified; R11.10 Vomiting, unspecified; M54.6 Pain in thoracic spine; F17.200 Nicotine dependence, unspecified, uncomplicated
CPT/HCPCS: 94640; 99283; 71046; J3490 ×2; J7620

== ENCOUNTER 2019-08-28 23:16 | Emergency (ER) | payer MEDICAID ==
[2019-08-29] MEDS ORDERED: ACETAMINOPHEN 325 MG TABLET PO ONE (00:22)
--- NOTE | 2019-08-29 01:42 | RADIOLOGY REPORT (SQ) ---
EXAM: X-ray ankle three views CLINICAL DATA: Lateral left ankle pain after rolling foot TECHNICAL DATA: Three x-ray views of the left ankle were performed on 08/29/2019 at 1:23 AM. COMPARISONS: None FINDINGS: There is no evidence of fracture or dislocation. There is no significant arthritis or degenerative change. No focal lytic or sclerotic bone lesions are seen. Bone mineralization is normal. No focal soft tissue abnormalities are identified. IMPRESSION: No evidence of acute osseous injury involving the left ankle.
[2019-08-29] MEDS ORDERED: IBUPROFEN 600 MG TABLET PO ONE (01:59)
--- NOTE | 2019-08-29 02:04 | ER Document Report ---
HPI - HPI Time Seen by Provider: 08/29/19 01:43 Pain Level: 4 Context: Patient is a 29-year-old female that comes emergency department for chief complaint of left foot pain. She states [place] [employer] [place], she does not recall a specific injury but now she feels like her foot is swollen and painful and she has trouble walking on it. She denies any other injuries or any other locations of concern. She denies . - REPRODUCTIVE Reproductive: DENIES: : Past Medical History - General Information source: Patient - Social History Smoking Status: Unknown if Ever Smoked Frequency of alcohol use: None Drug Abuse: None Lives with: Family Family History: Arthritis, CAD, COPD, CVA, DM, Hyperlipidemia, Hypertension, Malignancy - skin, Other - Mother: blood clots in legs Patient has suicidal ideation: No Patient has homicidal ideation: No - Past Medical History Cardiac Medical History: Reports: Hx Hypertension Pulmonary Medical History: Reports: Hx Bronchitis - twice in last 2 yrs Neurological Medical History: Reports: Hx Migraine Renal/ Medical History: Reports: Hx Ovarian Cysts. Denies: Hx Peritoneal Dialysis GI Medical History: Reports: Hx Irritable Bowel - constipation Musculoskeletal Medical History: Denies Hx Arthritis, Reports Hx Musculoskeletal Deformity, Reports Hx Musculoskeletal Trauma Psychiatric Medical History: Reports: Hx Anxiety, Hx Attention Deficit Hyperactivity Disorder, Hx Bipolar Disorder, Hx Depression Traumatic Medical History: Reports: Hx Fractures - right hand Past Surgical History: Reports: Hx Abdominal Surgery - LAPROSCOPY FOR ENDOMETROSIS, Hx Adenoidectomy, Hx Breast Surgery - augmentation, Hx Gynecologic Surgery - LAPROSCOPY FOR ENDOMETROSIS, Hx Orthopedic Surgery - pack's cyst, Hx Tonsillectomy. Denies: Hx Pacemaker - Immunizations Immunizations up to date: Yes Hx Diphtheria, Pertussis, Tetanus Vaccination: Yes Vertical Provider Document - CONSTITUTIONAL General Appearance: WD/WN, No Apparent Distress - INFECTION CONTROL TRAVEL OUTSIDE OF THE [place] IN LAST 30 DAYS: No COUNTRY TRAVELED TO/FROM: [place] - HEENT HEENT: Atraumatic, Normocephalic - NECK Neck: Normal Inspection - RESPIRATORY Respiratory: Breath Sounds Normal, No Respiratory Distress - CARDIOVASCULAR Cardiovascular: Regular Rate, Regular Rhythm - GI/ABDOMEN Gastrointestinal: Abdomen Soft, Abdomen Non-Tender - BACK Back: Normal Inspection - MUSCULOSKELETAL/EXTREMETIES Musculoskeletal/Extremeties: MAEW, FROM, Tender - Tenderness over the dorsum of the left foot just past the talus and extending over to the left lateral foot. There is also mild tenderness along the arch over the plantar aspect. Minimal questionable soft tissue swelling dorsally. Normal capillary refill and sensation, normal range of motion of the toes, foot, ankle, leg, knee, hip. Normal lower extremity exam otherwise. - NEURO Level of Consciousness: Awake, Alert, Appropriate Motor/Sensory: No Motor Deficit, No Sensory Deficit - DERM Integumentary: Warm, Dry, No Rash Course - Re-evaluation Re-evalutation: Patient has a benign exam with minimal questionable soft tissue swelling and no signs of injury. She did not recall an injury. X-rays negative. Suspect sprain and soft tissue swelling from the activity. Provided with immobilization after discussion, discussed treatment, follow-up, return precautions. Patient states understanding and agreement - Vital Signs Vital signs: Temp Pulse Resp BP Pulse Ox 97.5 F 107 H 22 H 144/100 H 98 08/29/19 00:18 08/29/19 00:18 08/29/19 00:18 08/29/19 00:18 08/29/19 00:18 Procedures - Immobilization Left ankle Pre-Proc Neuro Vasc Exam: Normal Immobilizer type: Javier wrap, Cock-up Performed by: RN Post-Proc Neuro Vasc Exam: Normal Alignment checked and good: Yes Discharge - Discharge Clinical Impression: Left foot pain Left ankle pain Qualifiers: Chronicity: acute Qualified Code(s): M25.572 - Pain in left ankle and joints of left foot Condition: Stable Disposition: HOME, SELF-CARE Additional Instructions: Your x-ray does not show any fracture or concerning finding. Your evaluation is most consistent with a sprain, probably including the ATF ligament of the foot. I recommend ice 3-4 times a day for 10 to 15 minutes, elevation, use the crutches and brace/wrap for the next 2 to 3 days. Take the anti-inflammatory as prescribed. Symptoms should resolve with time, after symptoms resolve resume normal activity. Follow-up with primary care. Return for any concerning worsening symptoms including severe swelling or pain. Prescriptions: Naproxen 500 mg PO BID PRN #14 tablet PRN Reason: Forms: Return to Work Referrals: ARASELI RADER MD [Primary Care Provider] - Follow up as needed
[2019-08-29 02:39] VITALS: BP 126/81
== END 2019-08-29 02:40 | disposition home or self-care (01) ==
LOC: ER 23:16
DX: M25.572 Pain in left ankle and joints of left foot (principal); M79.672 Pain in left foot; M79.89 Other specified soft tissue disorders; I10 Essential (primary) hypertension
CPT/HCPCS: 99283; 73610; L1902; L4350; J3490 ×2